=== PATIENT | male | born 1975 | race Caucasian/White ===

== ENCOUNTER 2018-10-29 07:30 | Outpatient (RCR) | payer OTHER, SELFPAY ==
--- NOTE | 2018-09-26 09:57 | HP.PTEVAL_ITS ---
Patient's Visit Information LOI BOWENS Jr. is a 43 year old M referred to Physical Therapy by Alex Noriega MD with a diagnosis of cervicalgia and vertigo. Date of Evaluation: 09/26/18 Physical Therapist: Louis Oden DPT, OCS, CSCS - Visit Plan Frequency: 2x /Week Duration: 2 Months Plan: 2x/week for 4-8 weeks. 1. R neck STM and manual to ICTraction. Stretch R SCM and UT and progress to HEP . tech postural and cervical strength adn progress to HEP. 2. EG to check weekly for VOR progression. - Subjective Findings: Getting dizzy alot. Had vertigo years ago and just got medicine. Lately been getting LENTZ. Driving can make him worse as everything can start to close in on him. Hads ome of these symptoms since last summer. Happened with elevation change. Went away fairly quicklya t that time. Standing up quickly [facility] has caused it also. Dizzy symptoms started 6-8 months ago. Gets dizzy sitting, eating, Described as rollercoaster movements. Daily dizzyness lasting all day to not long. 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 Head ovements and busy visual. Saw [facility] and sent to beurologist. LENTZ last few weeeks R oociput and work up into temples. Neck pain daily for 10 years R upper cervical spine. 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 Sleep is OK. No dizzyness with lying down.No positional changes make him dizzy. Recently has been avoiding physical activitiy outside of work and sometimes at work. Basic ADLs are done OK. avoids family functions as he feels like crap. - Pain LENTZ Pain Intensity (Out of 10): 1 Pain Intensity Range: 0, 10 - Objective Forward head posture with slight R rotation at neck in resting posture. Baseline 4/10 dizzyness today. Oculomotor: no nystagmus with gaze or head shake. - head thrust. normal convergence. skew eye devaition -. pursuit and saccades marisol. VOR causes increase to 7/10 symptoms for 2 minutes. - B hallpike fredy, - roll test. Blance and trasnfers are good and normal. Neck AROM L rotation 65, R rotation 70, ext 45 all without pain, SB symmetrical. sensation UE WNL to gross light touch. reflexes 2/3 biceps and triceps. tender to touch R occiput and paraspinals and tight R UT and SCM. - Balance Scores Functional Gait Assessment Score: 30 % Disability: 0 CATSIB Score (Max score 120 seconds): 120 - Goals Goal 1:: abolish vertigo by 90% and VOR x 2 without symptoms. Goal Time Frame: 6-8 Weeks Goal 2:: Neck pain 0-1/10 at all times and manageable with appropriate ex. Goal Time Frame: 4-6 Weeks Goal 3:: LENTZ abolished for 1 week. Goal Time Frame: 4-6 Weeks Goal 4:: Pt feel 90% better overall and not miss family social functions due to symptoms. 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 Rehabilitation Potential: Fair - Anticipated Interventions Patient/Client Instruction: Educate patient on: Condition, Plan of Care For the Purpose of:: To decrease pain, To improve muscle performance and motor function, To improve ability of physical actions for home/community/work/leisure Therapeutic Exercise to Include: Strength training, Postural training, Flexibilty training, Active ROM, Scapular Strength/Stabilization Comment: adaptation For the Purpose of:: To decrease pain, To improve ability of physical actions for home/community/work/leisure Manual Therapy Techniques to Include: Passive ROM, Soft tissue mobilization For the Purpose of:: To decrease pain, To increase ROM, To improve ability of physical actions for home/community/work/leisure Intermittent cervical traction: Yes For the Purpose of:: To decrease pain Thank you for the opportunity to evaluate your patient. For Medicare and Medicare HMO plans, please review the plan of care and approve it. It will need to be FAXED BACK to us at [phone] for Medicare purposes. For Medicare only, by signing this I certify the plan of care. Please let me know if there are questions or concerns regarding this plan of care. Physician Signature: Date:
--- NOTE | 2018-10-29 08:11 | HP.PTDCSUM ---
HP - PT D/C Summary It has been my pleasure to treat LOI BOWENS Jr. under orders from Alex Noriega MD, for the diagnosis of cervicalgia and vertigo for a total of 9 visit(s). Discharge Date: 10/29/18 Please see the following information for a summary of their discharge status. - Subjective Subjective: No dizzyness. Did blacktop Monday and had a little H Monday but it loosened up as the day went on. Never got a migraine. Neck pain is decent. Pain on was 5/10 adn 2/10 yesterday. It is intermittent and worse with hard work. Sleep is good. activities are normal. To doctor in November. Does HEP when he can stretching hsi neck and ROM to neck and focus on posture. Does nto do rubber bands very often. Ready to be done with PT. - Pain LENTZ Pain Intensity (Out of 10): 0 - Overall Improvement % Improvement: 85 - Objective Objective/Function: 70 B rotation c/s without pain today. 65 ext without pain or dizzyness. - B hallpike fredy testing. Normal giat and movement today. OVERALL SIGNIFICANTLY BETTER - Goals Goal 1:: abolish vertigo by 90% and VOR x 2 without symptoms. Goal Progress: Goal Met Goal 2:: Neck pain 0-1/10 at all times and manageable with appropriate ex. Goal Progress: Progressing Goal 3:: LENTZ abolished for 1 week. Goal Progress: Progressing Goal 4:: Pt feel 90% better overall and not miss family social functions due to symptoms. Goal Progress: Progressing - Plan Plan: D/C - D/C Information Discharge Comments: dOING WELL, WILL CONTINUE VIA hep AND F/U WITH DOCTOR IN ONE MONTH. TRACTION SEEMED TO BE MOST EHLPFUL FOR SYMPTOMS. If there are questions or concerns regarding this patient's physical therapy, please feel free to call me at [phone]. Thank you for the referral of this patient. Sincerely, Louis Oden, DPT, OCS, CSCS
== END 2018-10-29 19:00 | disposition home or self-care (01) ==
LOC: PT 07:30
PROVIDERS: Family Provider Family Medicine; PCP Family Medicine; Visit Provider Psychiatry & Neurology Neurology
DX: H81.12 Benign paroxysmal vertigo, left ear (principal); M54.2 Cervicalgia
CPT/HCPCS: 97012; 97110; 97140; 97162; 97530

== ENCOUNTER → 2019-05-27 14:45 | Outpatient (CLI) | payer OTHER, SELFPAY ==
[2019-05-15 14:41] VITALS: BMI 26.5
--- NOTE | 2019-05-27 14:45 | ECHOD_ITS ---
Reason For Study: Palpitations Procedure This was a 2D Doppler, Color Flow transthoracic echocardiogram. Exam performed in department. Left Ventricle Normal LV size. The estimated ejection fraction is 65 %. No evidence for diastolic dysfunction. No regional wall motion abnormalities noted. Right Ventricle Normal RV size. Normal systolic function. Atria Normal left atrium. Normal right atrium. No doppler evidence for ASD. Mitral Valve There is no mitral valve stenosis. No mitral valve insufficiency. Tricuspid Valve There is no tricuspid stenosis. No tricuspid valve insufficiency. Unable to estimate RV systolic pressure due to insufficient tricuspid regurgitant envelope. Aortic Valve There is no aortic stenosis. No aortic valve insufficiency. Pulmonic Valve There is no pulmonic valvular stenosis. No pulmonic valve insufficiency. Great Vessels Normal aortic root. Pericardium/Pleural No pericardial effusion. MMode/2D Measurements & Calculations LVIDd: 4.4 cm IVSd: 0.90 cm Ao root diam: 2.7 cm LVIDs: 2.7 cm LVPWd: 1.1 cm LA dimension: 3.2 cm RVDd: 3.3 cm FS: 38.8 % LAV(MOD-bp): 44.1 ml LA A4 area: 16.7 cm2 RA A4 area: 17.2 cm2 LAV(MOD-bp) Indexed: 21.6 ml/m2 LAV(MOD-sp2): 43.5 ml LAV(MOD-sp4): 43.9 ml Time Measurements MV dec time: 0.22 sec Doppler Measurements & Calculations MV E max mich: 113.5 cm/sec Lat Peak E' Mich: 15.1 cm/sec Med Peak E' Mich: 13.7 cm/sec MV A max mich: 89.5 cm/sec E/E' lat: 7.5 E/E' med: 8.3 MV E/A: 1.3 MV V2 max: 106.1 cm/sec MV P1/2t max mich: 108.7 cm/sec Ao V2 max: 148.3 cm/sec MV max P.5 mmHg MV P1/2t: 57.0 msec Ao max P.8 mmHg MV V2 mean: 62.9 cm/sec MV dec slope: 559.1 cm/sec2 MV mean P.9 mmHg MVA(P1/2t): 3.9 cm2 MV V2 VTI: 29.7 cm LV V1 max: 127.6 cm/sec PA V2 max: 134.8 cm/sec LV V1 max P.5 mmHg Interpretation Summary The estimated ejection fraction is 65 %. No evidence for diastolic dysfunction. Ordering Physician: Jann Rodrgiuez Referring Physician: Jann Rodriguez Performed By: Lavon Dewitt RCS
== END ==
PROVIDERS: PCP Family Medicine; Referring Provider Specialist; Visit Provider Specialist
DX: R00.2 Palpitations (principal)
CPT/HCPCS: 93306

== ENCOUNTER → 2022-01-17 | Outpatient (CLI) | payer OTHER, SELFPAY ==
--- NOTE | 2022-01-17 13:23 | RAD_ITS ---
STUDY: X-RAY - LEFT WRIST REASON FOR EXAM: Male, 46 years old. Left wrist pain. TECHNIQUE: 3 view(s) of the wrist were obtained. COMPARISON: None. FINDINGS: Normal visualized distal radius and ulna. Normal radiocarpal articulation. Normal distal radioulnar articulation. Normal carpal bones. Mild arthrosis of the radial carpal row. Mild arthrosis of the first CMC joint. Normal second through fifth carpometacarpal articulations. Normal visualized metacarpal bones. The soft tissue structures are unremarkable. 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 No other abnormality present. Electronically Signed: Epifanio Orellana, at 10:09 EDT ,
== END | disposition home or self-care (01) ==
LOC: RAD 13:22
PROVIDERS: PCP Family Medicine; Referring Provider Nurse Practitioner Family; Visit Provider Nurse Practitioner Family
DX: M25.532 Pain in left wrist (principal)
CPT/HCPCS: 73110

== ENCOUNTER → 2022-12-16 | Outpatient (CLI) | payer OTHER, SELFPAY ==
--- NOTE | 2022-12-16 07:17 | US_ITS ---
STUDY: ABDOMINAL ULTRASOUND - RIGHT UPPER QUADRANT REASON FOR VISIT: Male, 47 years old RUQ PAIN x 3 weeks TECHNIQUE: Ultrasound evaluation of the right upper quadrant was performed with real-time and static fabian-scale imaging. TECHNICAL QUALITY: Adequate. COMPARISON: None. FINDINGS: Liver: The liver measures 15.3 cm. There is increased echogenicity consistent with fatty infiltration. The bile ducts are within normal limits. There is hepatic color flow. The direction of portal flow is hepatopetal. There is no demonstrated mass lesion. Gallbladder: Normal distended gallbladder. The gallbladder wall measures 2.8 mm. There is a negative sonographic Alvarado''s sign. There is no pericholecystic fluid. There are no gallstones. Common Bile Duct (C.B.D.): The common bile duct measures 3.5 mm. Pancreas: Normal size of the head, body and tail of the pancreas. There is normal echogenicity of the pancreas. There is no demonstrated pancreatic mass or cyst. Right Kidney: Normal size of the right kidney. The right kidney measures 11.7 cm x 5 cm x 6.1 cm. Normal renal cortex. The right cortex measures 1.4 cm. There is no demonstrated renal mass or cyst. There is no right hydronephrosis. US/Abdomen Limited IMPRESSION: Fatty infiltration of the liver. Electronically Signed: Hugh De Leon MD at 12:21 EDT ,
== END | disposition home or self-care (01) ==
LOC: US 07:16
PROVIDERS: PCP Family Medicine; Referring Provider Nurse Practitioner Family; Visit Provider Nurse Practitioner Family
DX: R10.11 Right upper quadrant pain (principal)
CPT/HCPCS: 76705

== ENCOUNTER → 2024-03-26 | Outpatient (CLI) | payer OTHER, SELFPAY ==
--- NOTE | 2024-03-26 12:56 | RAD_ITS ---
HISTORY: PAIN. TECHNIQUE: XR Knee Complete 4 Views or More. COMPARISON: None. FINDINGS: BONES : No acute fracture identified. Mineralization unremarkable. JOINTS: No dislocation. Joint spaces maintained. RAD/Knee 4 or More Views IMPRESSION: No acute fracture or dislocation identified in the left knee. Electronically Signed: Macy Shelby MD at 10:40 EST ,
== END | disposition home or self-care (01) ==
LOC: MTRAD 12:55
PROVIDERS: PCP Family Medicine; Referring Provider Family Medicine; Visit Provider Family Medicine
DX: M25.562 Pain in left knee (principal)
CPT/HCPCS: 73564

== ENCOUNTER 2024-05-01 12:12 | Day surgery (SDC) | payer OTHER, SELFPAY ==
--- NOTE | 2024-04-29 11:20 | PAT.ANESEVAL ---
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 When Was Last Pacemaker Check QUESTION #4 FULL TEXT: You/Your Family Experience fever (hyperthermia) with Anesthesia Last Oral Intake Last Oral intake: Last Oral Intake NPO since Meds taken in AM with sips of water? Meds patient instructed to take am of surgery PONV PONV - stripping and booking machine operator: PONV - stripping and booking machine operator Female No 04/29/24 10:59 HX of Motion Sickness No 04/29/24 10:59 HX of N/V After Surgery Yes 04/29/24 10:59 Non-Smoker No 04/29/24 10:59 Duration of Surgery greater No 04/29/24 10:59 than 60 minutes Number of Risk Factors 1 04/29/24 10:59 PONV Score Low Risk 04/29/24 10:59 Height & Weight Height & Weight: Anesthesia: Height & Weight Height 5 ft 10 in 03/28/24 11:26 Respiratory Assessment Respiratory Assessment - stripping and booking machine operator: Respiratory Tract Infection Hx - stripping and booking machine operator Hx Respiratory Tract Infection No 04/29/24 10:59 STOP Sleep Apnea STOP Sleep Apnea - stripping and booking machine operator: STOP Sleep Apnea - stripping and booking machine operator Hx Hypertension No 04/29/24 10:59 Hx Sleep Apnea No 04/29/24 10:59 CPAP BIPAP Do you snore loudly (louder No 04/29/24 10:59 than talking or can be heard Do you often feel tired/ No 04/29/24 10:59 fatigued/ sleepy during daytime? Has anyone observed you stop No 04/29/24 10:59 breathing during sleep? STOP Results Negative 04/29/24 10:59 QUESTION #5 FULL TEXT : Do you snore loudly (louder than talking or can be heard through closed doors)? 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 Specify any problems Hx of Preganancy in last 3 N/A 04/29/24 10:59 Months Nurse Filling Out Transfusion NBUCHER 04/29/24 10:59 & Questions: Date: 04/29/24 04/29/24 10:59 Time: 10:59 04/29/24 10:59 Patient unable to answer at this time (ie. confused, unrespo /Reproduction History /Reproductive History - stripping and booking machine operator: /Reproductive Hx- stripping and booking machine operator Hx Now No 04/29/24 10:59 Gestational Age (in weeks): EDC: Hx Hx Para Hx Section SAB No 04/29/24 10:59 [facility] Medical History (Updated 04/29/24 @ 11:03 by Lisa Kulkarni) Fatty liver High cholesterol Non-smoker History of echocardiogram Cardiology follow-up encounter Family history of colon cancer in mother History of spinal cord injury Hyperlipidemia Fatigue Irregular heart rate Home Medications ?Medication ?Instructions ?Recorded ?Last Taken ?Type bee pollen 550 mg capsule 550 mg PO QDAY 03/28/24 Unknown History rosuvastatin 5 mg tablet 5 mg PO QODAY 03/28/24 Unknown History sennosides 8.6 mg-docusate sodium 1 tab-cap PO QDAY 03/28/24 Unknown History 50 mg tablet (Stool Softener-Laxative) cholecalciferol (vitamin D3) 25 25 mcg PO DAILY 04/29/24 Unknown History mcg (1,000 unit) capsule (Vitamin D3) Allergy/AdvReac Type Severity Reaction Status Date / Time No Known Allergies Allergy Verified 04/29/24 10:56 Family History Mother COPD (chronic obstructive pulmonary disease) Congestive heart failure Lung cancer Colon cancer Heavy smoker Surgical History History of tonsillectomy (1986) s/p removal of salivary gland (2009) Social History (Updated 03/28/24 @ 11:23 by Damari Nino) current occupational status: employed Smoking Status: Never smoker alcohol intake: current alcohol intake frequency: holidays/special occasions only substance use type: does not use Audit: Pertinent Findings Pertinent Findings EKG Perinent findings: 05/15/2019 sinus rhythm within normal limits Echo (EF%) pertinent findings: 05/27/2019 EF 65% no evidence for diastolic dysfunction Consult pertinent findings: Cardiology 05/15/2019 palpitations cut down caffeine as well as an echo and electrocardiogram which were both negative Recommendation Anesthesia Recommendation Anesthesia recommendation: OPTIMIZED for anesthesia
[2024-05-01] VITALS (7 sets, daily range): BP systolic 106–138; BP diastolic 73–92; PULSE 66–87; RESP 16–18; TEMP 36.3–37.4; O2SAT 93–100; BMI 28.8
--- NOTE | 2024-05-01 12:46 | PCM.PRE.AN2 ---
ASA Classification* ASA Classification ASA Classification: 2 Assessment & Plan Anesthesia* Anesthesia Assessment Anesthesia Assessment: Discussed sedation and/or anesthesia options, risks, benefits, and alternatives with patient/parents/legal guardian/POA. Questions invited. The patient/parents/legal guardian/POA seems to understand and agrees to proceed with anesthesia plan. Reviewed the physical assessment, medical history, allergy history and patient home medications list prior to surgery/procedure/anesthetic and documented any changes. Performed airway and anesthesia risk assessments. Anesthesia Type Anesthesia Type: MAC Anesthesia Focused Assessment* Airway Assessment Mouth opens: >3 cm Mallampati Score: II Focused Labs Anesthesia Preop lab: CBC WBC 6.3 k/mm3 (4.4-11.0) 09/17/12 07:45 RBC 4.80 M/mm3 (4.6-6.2) 09/17/12 07:45 Hgb 14.1 g/dl (13.0-16.5) 09/17/12 07:45 Hct 42.5 % (40-54) 09/17/12 07:45 Plt Count 210 K/mm3 (150-450) 09/17/12 07:45 CHEMISTRY Potassium 3.6 mmol/L (3.5-5.1) 09/17/12 07:45 Sodium 140 mmol/L (136-145) 09/17/12 07:45 BUN 22 mg/dL (7-18) H 09/17/12 07:45 Creatinine 1.0 mg/dL (0.8-1.3) 09/17/12 07:45 Glucose 94 mg/dL (74-106) 06/21/18 07:35 COAG Pre-Assessment Diagnosis/Proposed Procedure Planned Operative Procedure(s): COLONOSCOPY Anesthesia History 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 When Was Last Pacemaker Check QUESTION #4 FULL TEXT: You/Your Family Experience fever (hyperthermia) with Anesthesia Last Oral Intake Last Oral intake: Last Oral Intake NPO since Meds taken in AM with sips of water? Meds patient instructed to take am of surgery PONV PONV - shearer operator: PONV - shearer operator Female No 04/29/24 10:59 HX of Motion Sickness No 04/29/24 10:59 HX of N/V After Surgery Yes 04/29/24 10:59 Non-Smoker No 04/29/24 10:59 Duration of Surgery greater No 04/29/24 10:59 than 60 minutes Number of Risk Factors 1 04/29/24 10:59 PONV Score Low Risk 04/29/24 10:59 Height & Weight Height & Weight: Anesthesia: Height & Weight Height 5 ft 10 in 03/28/24 11:26 Respiratory Assessment Respiratory Assessment - shearer operator: Respiratory Tract Infection Hx - shearer operator Hx Respiratory Tract Infection No 04/29/24 10:59 STOP Sleep Apnea STOP Sleep Apnea - shearer operator: STOP Sleep Apnea - shearer operator Hx Hypertension No 04/29/24 10:59 Hx Sleep Apnea No 04/29/24 10:59 CPAP BIPAP Do you snore loudly (louder No 04/29/24 10:59 than talking or can be heard Do you often feel tired/ No 04/29/24 10:59 fatigued/ sleepy during daytime? Has anyone observed you stop No 04/29/24 10:59 breathing during sleep? STOP Results Negative 04/29/24 10:59 QUESTION #5 FULL TEXT : Do you snore loudly (louder than talking or can be heard through closed doors)? 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 Use History - shearer operator: Tobacco Use History - shearer operator Tobacco Use Smoking Status Never smoker 04/29/24 10:59 Hx Tobacco Use No 04/29/24 10:59 Years Smoking Packs Smoked per Day Smoking Cessation Date was within the last 15 years Hx Smoking Cessation Date Hx Smoking Cessation Counseling Hematologic Medial History Hematologic Hx - shearer operator: Hematologic Medical Hx - resawyer Hx of Blood Transfusion No 04/29/24 10:59 Hx of Transfusion in last 3 No 04/29/24 10:59 Months Date of Last Transfusion (if within last 3 months) Ever experience any problems No 04/29/24 10:59 with transfusion(s)? Specify any problems Hx of Preganancy in last 3 N/A 04/29/24 10:59 Months Nurse Filling Out Transfusion NBUCHER 04/29/24 10:59 & Questions: Date: 04/29/24 04/29/24 10:59 Time: 10:59 04/29/24 10:59 Patient unable to answer at this time (ie. confused, unrespo /Reproduction History /Reproductive History - shearer operator: /Reproductive Hx- shearer operator Hx Now No 04/29/24 10:59 Gestational Age (in weeks): EDC: Hx Hx Para Hx Section SAB No 04/29/24 10:59 [facility] Medical History Fatty liver High cholesterol Non-smoker History of echocardiogram Cardiology follow-up encounter Family history of colon cancer in mother History of spinal cord injury Hyperlipidemia Fatigue Irregular heart rate Home Medications ?Medication ?Instructions ?Recorded ?Last Taken ?Type bee pollen 550 mg capsule 550 mg PO QDAY 03/28/24 Unknown History rosuvastatin 5 mg tablet 5 mg PO QODAY 03/28/24 Unknown History sennosides 8.6 mg-docusate sodium 1 tab-cap PO QDAY 03/28/24 Unknown History 50 mg tablet (Stool Softener-Laxative) cholecalciferol (vitamin D3) 25 25 mcg PO DAILY 04/29/24 Unknown History mcg (1,000 unit) capsule (Vitamin D3) Allergy/AdvReac Type Severity Reaction Status Date / Time No Known Allergies Allergy Verified 05/01/24 12:45 Family History Mother COPD (chronic obstructive pulmonary disease) Congestive heart failure Lung cancer Colon cancer Heavy smoker Surgical History History of tonsillectomy (1986) s/p removal of salivary gland (2009) Social History current occupational status: employed Smoking Status: Never smoker alcohol intake: current alcohol intake frequency: holidays/special occasions only substance use type: does not use Review of Systems (Anesthesia) ROS Narrative System reviewed and no additional complaints, except as documented.
--- NOTE | 2024-05-01 13:24 | HP.PCM_ITS ---
HPI - General HPI Narrative LOI BOWENS, is a 48 M who presents for screening colonoscopy. He thinks he had a colonoscopy when he was a teenager. He denies abdominal pain or blood in the stool. He does have a family history of colon cancer in his mother in her 70s [facility] Medical History Fatty liver High cholesterol Non-smoker History of echocardiogram Cardiology follow-up encounter Family history of colon cancer in mother History of spinal cord injury Hyperlipidemia Fatigue Irregular heart rate Home Medications ?Medication ?Instructions ?Recorded ?Last Taken ?Type bee pollen 550 mg capsule 550 mg PO QDAY 03/28/24 Unknown History rosuvastatin 5 mg tablet 5 mg PO QODAY 03/28/24 Unknown History sennosides 8.6 mg-docusate sodium 1 tab-cap PO QDAY 03/28/24 Unknown History 50 mg tablet (Stool Softener-Laxative) cholecalciferol (vitamin D3) 25 25 mcg PO DAILY 04/29/24 Unknown History mcg (1,000 unit) capsule (Vitamin D3) Allergy/AdvReac Type Severity Reaction Status Date / Time No Known Allergies Allergy Verified 05/01/24 12:45 Family History Mother COPD (chronic obstructive pulmonary disease) Congestive heart failure Lung cancer Colon cancer Heavy smoker Surgical History History of tonsillectomy (1986) s/p removal of salivary gland (2009) Social History current occupational status: employed Smoking Status: Never smoker alcohol intake: current alcohol intake frequency: holidays/special occasions only substance use type: does not use Past Medical/Surgical History Planned Operation Planned Operative Procedure(s): COLONOSCOPY Previous Hospitalizations/Surgeries HX Hospitalizations: No Any Problems With Anesthesia: No You/Your Family Experience Fever (Hyperthermia) With Anes: No Cholinesterase deficiency: No Cardiovascular Hx of Irregular Heartbeat and/or Afib: No Hx Heart Attack: No Hx Congestive Heart Failure: No Hx Hypertension: No Hx Pacemaker: No Respiratory Hx Chronic Obstructive Pulmonary Disease (COPD): No Hx Asthma: No Hx Emphysema: No Hx Sleep Apnea: No Hx Respiratory Tract Infection/Cold (presently): No Do You Snore Loudly (louder than talking or can be heard): No Do You Often Feel Tired/ Fatigued/ Sleepy Dring Daytime?: No Has Anyone Observed You Stop Breathing During Sleep?: No Result (for STOP score): Negative Smoking Status: Never smoker Gastrointestinal Hx Ulcer: No Neurological Hx Seizures: No Hx Multiple Sclerosis: No Hx Parkinson's Disease: No Hx Head/Neck Injury: No Hx Headaches: No Hx Back Injury/Pain: No Does patient have nerve stimulator: No Reproduction : No Psycho/Social Hx Anxiety: No Hx Depression: No Miscellaneous Recent Exposure to Contagious Disease: No Allergies No Known Allergies Allergy (Verified 05/01/24 12:45) Discharge Is Pt Admitted From a Detention, or a [place] [facility]: No After D/C, Where Do you Plan to Go: Return Home Vital Signs Vital Signs Vital Signs: 05/01/24 12:47 05/01/24 12:47 Temperature 98.1 F Temperature Source Temporal Pulse Rate 77 Respiratory Rate 18 Respiratory Pattern Normal Blood Pressure 138/92 H Blood Pressure Mean 107 Blood Pressure Source Monitor Blood Pressure Position Sitting Blood Pressure Location Left Arm Pulse Ox 100 Oxygen Delivery Method Room Air Weight Weight: 200 lb 9.93 oz Body Mass Index (BMI) 28.8 Physical Exam Const alert and oriented x3 HEENT normocephalic Eyes PERRL Resp normal respiratory effort and normal air movement Cardio regular rate and regular rhythm GI soft to palpation, non-tender and non-distended Extremity normal to inspection Assessment & Plan Assessment/Plan (1) Encounter for screening for malignant neoplasm of colon: PLAN: I explained endoscopy in detail to the patient. I explained the risks including but not limited to stroke or heart attack with anesthesia, perforation of the GI tract, bleeding, infection. I explained that any of these could necessitate further emergency surgery. The patient understands and all questions were answered sufficiently. The patient wishes to proceed with procedure. Meek Nagy MD Pager: [facility] [address] [place] [address], [address] [place] [address] Office: Surgery Risks - Colonoscopy Risks Include but are not Limited To: Risks include but are not limited to: Bleeding, perforation requiring further surgery, inability to complete colonoscopy requiring barium enema.
--- NOTE | 2024-05-01 13:51 | OP.CCLET_ITS ---
05/01/2024 Jacey Jimenez Md Re : Colonoscopy procedure for Enrico Gilmore Tony This procedure was performed on Wednesday, May 01, 2024. My impressions and recommendations are as follows: Impressions : - The entire examined colon is normal on direct and retroflexion views. - No specimens collected. Recommendations : - Discharge patient to home. - Resume previous diet. - Continue present medications. - Repeat colonoscopy in 10 years for screening purposes. My findings are described in the full procedure note, which is enclosed. If I can be of further assistance, please feel free to contact me at Doctor phone number(s): , Work: . Sincerely, Meek Nagy MD 05/01/2024 1:50:40 PM This report has been signed electronically.
--- NOTE | 2024-05-01 13:51 | OP.COLON_ITS ---
Patient Name: Enrico Lomeli Procedure Date: 05/01/2024 1:27 PM Date of : 1975 Age: 48 Procedure: Colonoscopy Indications: Screening for colorectal malignant neoplasm Providers: Meek Nagy MD Referring MD: Jacey Jimenez Md Medicines: Propofol per Anesthesia Patient Profile: This is a 48 year old male. Refer to note in patient chart for documentation of history and physical. Last Colonoscopy: more than 10 years ago. Complications: No immediate complications. Procedure: Pre-Anesthesia Assessment: - Prior to the procedure, a History and Physical was performed, and patient medications and allergies were reviewed. The patient's tolerance of previous anesthesia was also reviewed. The risks and benefits of the procedure and the sedation options and risks were discussed with the patient. All questions were answered, and informed consent was obtained. Prior Anticoagulants: The patient has taken no anticoagulant or antiplatelet agents. After reviewing the risks and benefits, the patient was deemed in satisfactory condition to undergo the procedure. After I obtained informed consent, the scope was passed under direct vision. Throughout the procedure, the patient's blood pressure, pulse, and oxygen saturations were monitored continuously. The Colonoscope was introduced through the anus and advanced to the cecum, identified by appendiceal orifice and ileocecal valve. The colonoscopy was performed without difficulty. The patient tolerated the procedure well. The quality of the bowel preparation was good. The ileocecal valve, appendiceal orifice, and rectum were photographed. Scope In: 1:34:56 PM Scope Withdrawal Time 0 hours 6 minutes 6 seconds Scope Out: 1:48:30 PM Total Procedure Duration Time 0 hours 13 minutes 34 seconds Findings: The entire examined colon appeared normal on direct and retroflexion views. Impression: - The entire examined colon is normal on direct and retroflexion views. - No specimens collected. Recommendation: - Discharge patient to home. - Resume previous diet. - Continue present medications. - Repeat colonoscopy in 10 years for screening purposes. Procedure Code(s): --- Professional --- 58029, Colonoscopy, flexible; diagnostic, including collection of specimen(s) by brushing or washing, when performed (separate procedure) Diagnosis Code(s): --- Professional --- Z12.11, Encounter for screening for malignant neoplasm of colon CPT copyright 2021 [employer]. All rights reserved. The codes documented in this report are preliminary and upon certified procedural coder review may be revised to meet current compliance requirements. Meek Nagy MD 05/01/2024 1:50:40 PM This report has been signed electronically. Number of Addenda: 0 Note Initiated On: 05/01/2024 1:27 PM
--- NOTE | 2024-05-01 13:56 | PCM.POST.ANE ---
Anesthesia: Postop Eval I Current Vital Signs Temperature: 98.4 F Pulse Rate: 87 Blood Pressure: 120/73 Respiratory Rate: 16 Pulse Ox: 97 Assessment Airway patent: Yes Spontaneous unlabored respirations: Yes nausea: No Vomiting: No Anesthesia Complication: No Fluid Hydration Crystalloid volume administer (ml): 30 Total IV fluid infused: 30 Progress Note Anesthesia document: Postop Eval 1 completed: Yes
--- NOTE | 2024-05-01 14:12 | POSTOPAN2_ITS ---
Anesthesia Postop Eval I Sum Postop Eval Completion status Anesthesia document: Postop Eval 1 completed: Yes Anesthesia Postop Eval I Summary Anesthesia Postop Eval I Summary: Anesthesia Postop Eval I: Assessment Summary Airway patent Yes 05/01/24 13:56 MED SURG [email or web address] Spontaneous unlabored Yes 05/01/24 13:56 MED SURG [email or web address] respirations Mental status nausea No 05/01/24 13:56 MED SURG [email or web address] Vomiting No 05/01/24 13:56 MED SURG [email or web address] Anesthesia Postop Eval I: Fluid Summary Crystalloid volume administer 30 05/01/24 13:56 MED SURG [email or web address] (ml) Colloids volume administered ( ml) Blood Product volume administered (ml) Total IV fluid infused 30 05/01/24 13:56 MED SURG [email or web address] Anesthesia Postop Eval I: Summary Notes Anesthesia Complication No 05/01/24 13:56 MED SURG [email or web address] Anesthesia Complication Comment: Post-operative progress note Anesthesia: Postop Eval II Evaluation Mental status: Awake Pain Level: 0 nausea: No Vomiting: No
--- NOTE | 2024-05-01 14:12 | PCM.POSTANE2 ---
Anesthesia Postop Eval I Sum Postop Eval Completion status Anesthesia document: Postop Eval 1 completed: Yes Anesthesia Postop Eval I Summary Anesthesia Postop Eval I Summary: Anesthesia Postop Eval I: Assessment Summary Airway patent Yes 05/01/24 13:56 [email or web address] Spontaneous unlabored Yes 05/01/24 13:56 MACHINE [email or web address] respirations Mental status nausea No 05/01/24 13:56 MACHINE [email or web address] Vomiting No 05/01/24 13:56 [email or web address] Anesthesia Postop Eval I: Fluid Summary Crystalloid volume administer 30 05/01/24 13:56 [email or web address] (ml) Colloids volume administered ( ml) Blood Product volume administered (ml) Total IV fluid infused 30 05/01/24 13:56 [email or web address] Anesthesia Postop Eval I: Summary Notes Anesthesia Complication No 05/01/24 13:56 [email or web address] Anesthesia Complication Comment: Post-operative progress note Anesthesia: Postop Eval II Evaluation Mental status: Awake Pain Level: 0 nausea: No Vomiting: No
== END 2024-05-01 14:30 | disposition home or self-care (01) ==
LOC: EN 12:13 → AC 12:14
PROVIDERS: PCP Family Medicine; Referring Provider Family Medicine; Visit Provider Surgery
PROC: 0DJD8ZZ Inspection of Lower Intestinal Tract, Via Natural or Artificial Opening Endoscopic (ICD-10-PCS; CPT 45378; principal; 2024-05-01 13:25)
DX: Z12.11 Encounter for screening for malignant neoplasm of colon (principal); E78.00 Pure hypercholesterolemia, unspecified; Z80.0 Family history of malignant neoplasm of digestive organs; Z79.899 Other long term (current) drug therapy
CPT/HCPCS: 45378; A4216

== ENCOUNTER → 2024-06-06 | Outpatient (CLI) | payer OTHER, SELFPAY ==
--- NOTE | 2024-06-06 07:23 | CT_ITS ---
PROCEDURE: Noncontrast CT of the abdomen/pelvis. REASON FOR EXAM: Right lower quadrant lump for years TECHNIQUE: Contiguous unenhanced axial CT images were obtained through the abdomen/pelvis. Sagittal and coronal reformats were created. COMPARISON: Abdominal ultrasound 12/16/2022 FINDINGS: Moderate elevation right hemidiaphragm. Evaluation of the solid organs and vascular structures is limited due to lack of intravenous contrast. Mild degenerative changes in the spine. Bones of the abdomen/pelvis otherwise unremarkable. Heart is not enlarged. No sizable pericardial effusion. Lower ribs intact. Lower lungs clear. Abdominal aorta normal in caliber. No abdominal/pelvic adenopathy or ascites. No soft tissue mass of the abdominal wall or large abdominal wall defect. Tiny fat containing left inguinal hernia. Patchy wall thickening of the stomach may be due to lack of distention versus peristalsis. No calcified gallstones. The liver, adrenal glands, spleen, and pancreas show no specific abnormality. Kidneys are symmetric in size and attenuation. No dominant solid renal mass or obstructive uropathy. 2 mm nonobstructing mid right renal calculus. The urinary bladder is not well distended, grossly unremarkable. No abnormally dilated bowel segments or free intraperitoneal air. Scattered patchy wall thickening of the colon may be due to lack of distention versus peristalsis or chronic diverticular disease. Normal appendix. CT/Abdomen/Pelvis without Cont IMPRESSION: No acute findings in the abdomen/pelvis. 2 mm nonobstructing right renal calculus. No soft tissue mass or large defect of the abdominal wall. Moderate stool in the colon. One or more dose reduction techniques were used (e.g., Automated exposure contr ol, adjustment of the mA and/or kV according to patient size, use of iterative reconstruction technique). Reading Location[facility]
== END | disposition home or self-care (01) ==
LOC: CT 07:22
PROVIDERS: PCP Family Medicine; Referring Provider Family Medicine; Visit Provider Family Medicine
DX: R19.00 Intra-abdominal and pelvic swelling, mass and lump, unspecified site (principal)
CPT/HCPCS: 74176